=== PATIENT | male | born 1975 | race Caucasian/White ===

== ENCOUNTER 2017-05-11 08:23 | Emergency (ER) | payer SELFPAY ==
[2017-05-11] MEDS ORDERED: TERBUTALINE 1 MG/ML INJ SC (09:00)
[2017-05-11] MEDS: SOD CHLORIDE 0.9% 1,000 ML IV (09:30)
[2017-05-11] MEDS: TERBUTALINE 1 MG/ML INJ SC (09:31)
[2017-05-11] MEDS: LORAZEPAM 0.5 MG TAB PO (09:31)
[2017-05-11 09:32] LABS: ADD MAN DIFF? NO
[2017-05-11 09:38] LABS: BASOPHIL # 0.1 10^3/ul (0.0-0.1); BASOPHILS % 0.9 % (0.0-2.0); EOSINOPHILS # 0.2 10^3/ul (0.0-0.5); EOSINOPHILS % 2.5 % (0.0-7.0); HEMATOCRIT 40.5 % (42.0-52.0); HEMOGLOBIN 14.2 g/dl (14.0-18.0); LYMPHOCYTES # 1.9 10^3/ul (0.8-2.9); LYMPHOCYTES % 23.4 % (15.0-51.0); MEAN CORPUSCULAR HEMOGLOBIN 29.6 pg (29.0-33.0); MEAN CORPUSCULAR HGB CONC 35.1 g/dl (32.0-37.0); MEAN CORPUSCULAR VOLUME 84.4 fl (82.0-101.0); MEAN PLATELET VOLUME 11.1 fl (7.4-10.4); MONOCYTE # 0.6 10^3/ul (0.3-0.9); MONOCYTES % 7.3 % (0.0-11.0); NEUTROPHIL # 5.2 10^3/ul (1.6-7.5); NEUTROPHILS % 65.6 % (39.0-77.0); PLATELET COUNT 202 10^3/UL (140-415)
[2017-05-11 10:11] LABS: ALANINE AMINOTRANSFERASE 58 IU/L (13-69); ALBUMIN 4.6 g/dl (3.3-4.9); ALBUMIN/GLOBULIN RATIO 1.43; ALKALINE PHOSPHATASE 111 IU/L (42-121); ANION GAP 16 (8-16); ASPARTATE AMINO TRANSFERASE 40 IU/L (15-46); BILIRUBIN,INDIRECT 0.2 mg/dl (0-1.1); BILIRUBIN,TOTAL 0.2 mg/dl (0.2-1.3); BLOOD UREA NITROGEN 14 mg/dl (7-20); CALCIUM 9.6 mg/dl (8.4-10.2); CARBON DIOXIDE 28 mmol/L (21-31); CHLORIDE 101 mmol/L (97-110); CREATININE 1.15 mg/dl (0.61-1.24); GLUCOSE 163 mg/dl (70-220); LIPASE 111 U/L (23-300); POTASSIUM 3.6 mmol/L (3.5-5.1); SODIUM 141 mmol/L (135-144); TOTAL PROTEIN 7.8 g/dl (6.1-8.1)
[2017-05-11 10:29] LABS: TROPONIN-I < 0.012 ng/ml (0.00-0.12)
== END 2017-05-11 09:43 | disposition left against medical advice (07) ==
LOC: E/R 08:23
DX: N48.30 Priapism, unspecified (principal); F17.210 Nicotine dependence, cigarettes, uncomplicated
CPT/HCPCS: 36415; 80053; 83690; 84484; 85025; 99283